=== PATIENT | male | born 1960 | race Caucasian/White ===

== ENCOUNTER → 2017-07-07 | Day surgery (SDC) | payer OTHER ==
[~2017-07-07] MED LIST: BUPIVACAINE HCL PF 0.75% 30 ML VIAL ONE; EPINEPHrine HCL (1:1000) 30 MG/30 ML VIAL ONE; LIDOCAINE 1.5%/EPINEPHrine 1:200,000 PF SOLN 30 ML AMP ONE; MIDAZOLAM HCL 5 MG/ML VIAL (1 ML) ONE; NS 100 ML (PAB BAG) 100 ML IV ONE; ONDANSETRON HCL 4 MG/2 ML VIAL IV PUSH ONE; PROPOFOL 200 MG/20 ML AMP IV ONE; SODIUM CHLOR 0.9% 1000 ML INJ 1,000 ML IV ONE; ceFAZolin INJ 1,000 MG VIAL ONE
--- NOTE | 2017-07-09 07:42 | MP ---
cc: DARISU CHOPRA M.D. DATE OF SURGERY 07/07/2017 PREOPERATIVE DIAGNOSIS Right shoulder full-thickness supraspinatus rotator cuff tear and right shoulder impingement syndrome. POSTOPERATIVE DIAGNOSIS Right shoulder full-thickness supraspinatus rotator cuff tear and right shoulder impingement syndrome. PROCEDURE 1. Right shoulder arthroscopic rotator cuff repair. 2. Right shoulder arthroscopic subacromial decompression. ANESTHESIA Interscalene block and general. SURGEON Darius Chopra MD [employer] OPERATOR SURGEON Jackson PEREZ ESTIMATED BLOOD LOSS Minimal. COMPLICATIONS None known. INDICATION Enrique Correa is a 56-year-old male with a full-thickness rotator cuff tear and persistent symptomatology. He presents now for arthroscopic surgery. The risks, benefits and alternatives to treatment were thoroughly discussed in detail. Informed consent was obtained. PROCEDURE The patient was brought to the operating room. He was placed under general anesthetic. He had been given interscalene block in the preop holding area. He was turned to the lateral decubitus position with the right shoulder up. The right shoulder was prepped and draped in the usual sterile fashion. IV antibiotics were given. Time-out was completed. Bony landmarks were drawn out about the shoulder. We proceeded with the three portal technique, posterior in the soft spot, lateral at the junction of the middle and lateral third of the acromion and accessory anterior portal. Blunt trocar was used to introduce the cannula. The shoulder was insufflated with saline. The first photograph shows some minimal fraying along the superior labrum, nothing grossly unstable. The biceps tendon was intact along its course including the bicipital groove. Looking posteriorly, the posterior labrum was intact and normal-appearing surface of the humeral head and glenoid. Looking upwards we saw the full-thickness rotator cuff tear which was retracted by about 1 cm. We proceeded to debride the footprint of the supraspinatus and debride the undersurface of the rotator cuff infraspinatus region, debride the edges of the supraspinatus until we were down to good healthy tissue. There was a small osteophyte on this superior articular margin and this was removed and we had a good bleeding bed of tissue in a region of approximately 2.5 cm x 1.5 cm. We then proceeded to place our first anchor at the most posterior border of the tear and then moved into the subacromial space and performed additional bursectomy. We used the [employer] 4.75 anchors. We proceeded to debride the edge of the rotator cuff and fine-tune the footprint and then assessed for repair further and we placed our secondary anchor anterior to the first x 2 cm and this was immediately behind the biceps tendon and then we proceeded to pass our sutures and assess this. Additionally we used a single stitch anteriorly and a single stitch posteriorly in a horizontal mattress fashion and then we proceeded with our lateral anchor fixation. All anchors had excellent fixation. We used the typical crisscross technique. Follow-up photograph seen shown from this angle posteriorly. Then we identified the anterior acromial spur and proceeded with our anterior acromionectomy, smoothing the undersurface of the acromion and removing approximately 3 mm of bone in the most anterior aspect. Follow-up photograph taken here. Only a portion of the coracoacromial ligament was removed. We then looked in through the lateral portal directly at the repair site and it looked very solid. Two photographs taken here. The arthroscopic equipment was removed, closed with absorbable sutures, Steri-Strips applied, sterile dressing applied. The patient was awoken and returned to the recovery room in stable condition. MD IVON Ceballos/CHRIS /8:40 AM /7:28 AM
== END | disposition home or self-care (01) ==
LOC: ESDC 06:14
PROVIDERS: ATTEND Orthopaedic Surgery Sports Medicine
DX: M75.121 Complete rotator cuff tear or rupture of right shoulder, not specified as traumatic (principal); M75.41 Impingement syndrome of right shoulder
CPT/HCPCS: 01630; 01991; 29826; 29827; 64417; C1713; J0171; J0690; J2250; J2405; J7030